=== PATIENT | female | born 1940 | race Caucasian/White ===

== ENCOUNTER 2017-02-02 13:22 | Inpatient (IN) | payer MEDICARE ==
[~2017-02-02] VITALS: Ht 157.5 cm; Wt 95.0 kg
[2017-02-02] VITALS (8 sets, daily range): BP systolic 128–171; BP diastolic 77–112
[2017-02-02] MEDS ORDERED: Zofran4 MG PO (17:16)
[2017-02-02] MEDS ORDERED: NORCO 5-325 TA1 EACH PO (17:16)
[2017-02-02 19:52] LABS: BASO # 0.1 10*3/uL (0.0-0.1); BASO % 0.2 % (0.0-1.0); HEMATOCRIT 41.3 % (37.0-47.0); HEMOGLOBIN 14.1 g/dl (12.0-16.0); IG # 0.1 10*3/uL (0.0-0.1); LYMPH # 2.2 10*3/uL (1.3-4.4); LYMPH % 9.5 % (27.0-41.0); MEAN CELL VOLUME 96.9 fl (81.0-99.0); MEAN CORPUSCULAR HGB 33.1 pg (27.0-31.0); MEAN CORPUSCULAR HGB CONC 34.1 g/dl (33.0-37.0); MEAN PLATELET VOLUME 10.3 fl (9.6-12.3); MONO # 0.8 10*3/uL (0.1-1.0); MONO % 3.7 % (3.0-9.0); NEUT # 19.8 10*3/uL (2.3-7.9); NEUT % 86.1 % (47.0-73.0); PLATELET COUNT AUTOMATED 356 10*3/uL (130-400); RED BLOOD COUNT 4.26 10*6/uL (4.10-5.10); RED CELL DISTRI WIDTH 13.2 % (0-14.5)
[2017-02-02 20:04] LABS: BUN 18 mg/dl (7-24); CARBON DIOXIDE 25 mmol/L (21-32); CHLORIDE 102 mmol/L (98-107); EST GLOM FILT AFRICAN AMERICAN > 60 ml/min; GLUCOSE 153 mg/dL (65-99); POTASSIUM 5.7 mmol/L (3.5-5.1); SODIUM 139 mmol/L (136-145)
[2017-02-02] MEDS ORDERED: DILTIAZEM 24HR300 MG PO (22:17)
[2017-02-02] MEDS ORDERED: XARE20MG PO (22:17)
[2017-02-02] MEDS ORDERED: NEURONTIN300 MG PO ×2 (22:18→22:20)
[2017-02-02] MEDS ORDERED: TOPROL XL25 MG PO (22:21)
[2017-02-02] MEDS ORDERED: FEMARA2.5 MG PO (22:21)
[2017-02-02] MEDS ORDERED: ADVAIR 500/501 E1 INH (22:22)
[2017-02-02] MEDS ORDERED: PROAIR HFA8.5 GM INH (22:22)
[2017-02-03] VITALS: BP 159/83
[2017-02-03 06:08] LABS: HEMATOCRIT 39.4 % (37.0-47.0); HEMOGLOBIN 12.9 g/dl (12.0-16.0); MEAN CELL VOLUME 97.8 fl (81.0-99.0); MEAN CORPUSCULAR HGB CONC 32.7 g/dl (33.0-37.0); MEAN PLATELET VOLUME 10.9 fl (9.6-12.3); PLATELET COUNT AUTOMATED 302 10*3/uL (130-400); RED BLOOD COUNT 4.03 10*6/uL (4.10-5.10); RED CELL DISTRI WIDTH 13.3 % (0-14.5); WHITE BLOOD COUNT 19.2 10*3/uL (4.8-10.8)
[2017-02-03 06:33] LABS: BUN 20 mg/dl (7-24); CARBON DIOXIDE 29 mmol/L (21-32); CHLORIDE 103 mmol/L (98-107); EST GLOM FILT AFRICAN AMERICAN > 60 ml/min; GLUCOSE 121 mg/dL (65-99); SODIUM 141 mmol/L (136-145)
[2017-02-03 06:39] LABS: POTASSIUM 4.4 mmol/L (3.5-5.1)
[2017-02-03 07:13] LABS: EOSINOPHIL # 0.4 10*3/uL (0-0.4); EOSINOPHILS 2 % (1-4); LYMPHOCYTE # 4.6 10*3/uL (1.3-4.4); MONOCYTE # 1.9 10*3/uL (0.1-1.0); NEUTROPHIL # 12.3 10*3/uL (2.3-7.9); NEUTROPHILS 64 % (47-73); TOTAL CELLS COUNTED 100 #CELLS
[2017-02-03 07:14] LABS: PLATELET SUFFICIENCY NORMAL (NORMAL)
[2017-02-03 08:00] VITALS: BP 159/98
[2017-02-03 12:00] VITALS: BP 157/92
[2017-02-03 16:00] VITALS: BP 150/105
[2017-02-03 17:50] VITALS: BP 142/88
[2017-02-03 20:00] VITALS: BP 164/87
[2017-02-04] VITALS: BP 174/83
[2017-02-04 08:00] VITALS: BP 147/76
[2017-02-04 08:08] LABS: MAGNESIUM 1.9 mg/dL (1.5-2.1)
[2017-02-04 08:10] LABS: HEMATOCRIT 38.3 % (37.0-47.0); HEMOGLOBIN 12.4 g/dl (12.0-16.0); MEAN CORPUSCULAR HGB 33.1 pg (27.0-31.0); MEAN CORPUSCULAR HGB CONC 32.4 g/dl (33.0-37.0); NUCLEATED RED BLOOD CELL 0.1 % (0.0-0.0); PLATELET COUNT AUTOMATED 285 10*3/uL (130-400); RED BLOOD COUNT 3.75 10*6/uL (4.10-5.10); RED CELL DISTRI WIDTH 13.6 % (0-14.5); WHITE BLOOD COUNT 19.6 10*3/uL (4.8-10.8)
[2017-02-04 08:12] LABS: MEAN CELL VOLUME 102.1 fl (81.0-99.0)
[2017-02-04 08:15] LABS: EOSINOPHIL # 0.2 10*3/uL (0-0.4); EOSINOPHILS 1 % (1-4); LYMPHOCYTE # 5.7 10*3/uL (1.3-4.4); MONOCYTE # 0.6 10*3/uL (0.1-1.0); NEUTROPHIL # 13.1 10*3/uL (2.3-7.9); NEUTROPHILS 67 % (47-73); TOTAL CELLS COUNTED 100 #CELLS
[2017-02-04 08:16] LABS: ACANTHOCYTES FEW; PLATELET SUFFICIENCY NORMAL (NORMAL); SCHISTOCYTES FEW
[2017-02-04 08:21] LABS: PHOSPHOROUS 3.8 mg/dL (2.5-4.9); THYROID STIM HORMONE (HS) 2.99 uIU/ml (0.358-4.75)
[2017-02-04 08:27] LABS: VITAMIN D, 25-HYDROXY 30.8 ng/mL (30-100)
[2017-02-04 12:00] VITALS: BP 157/72
[2017-02-04 16:00] VITALS: BP 139/67
[2017-02-04 20:00] VITALS: BP 109/60; BP 116/62
[2017-02-05] VITALS: BP 120/64
[2017-02-05 04:00] VITALS: BP 96/57
[2017-02-05 06:52] LABS: HEMATOCRIT 32.4 % (37.0-47.0); HEMOGLOBIN 10.8 g/dl (12.0-16.0); MEAN CELL VOLUME 100.3 fl (81.0-99.0); MEAN CORPUSCULAR HGB 33.4 pg (27.0-31.0); MEAN CORPUSCULAR HGB CONC 33.3 g/dl (33.0-37.0); MEAN PLATELET VOLUME 10.9 fl (9.6-12.3); PLATELET COUNT AUTOMATED 256 10*3/uL (130-400); RED BLOOD COUNT 3.23 10*6/uL (4.10-5.10); RED CELL DISTRI WIDTH 13.3 % (0-14.5); WHITE BLOOD COUNT 16.5 10*3/uL (4.8-10.8)
[2017-02-05 07:17] LABS: ACANTHOCYTES FEW; BASOPHIL # 0.3 10*3/uL (0-0.1); BASOPHILS 2 % (0-1); HYPOCHROMIA SLIGHT; LYMPHOCYTE # 4.5 10*3/uL (1.3-4.4); MONOCYTE # 1.3 10*3/uL (0.1-1.0); NEUTROPHIL # 10.4 10*3/uL (2.3-7.9); NEUTROPHILS 63 % (47-73); PLATELET SUFFICIENCY NORMAL (NORMAL); TOTAL CELLS COUNTED 100 #CELLS
[2017-02-05 07:20] LABS: ALBUMIN 2.7 gm/dl (3.1-4.5); ALKALINE PHOSPHATASE 139 U/L (45-117); BILIRUBIN, TOTAL 0.3 mg/dl (0.2-1.0); BUN 19 mg/dl (7-24); CARBON DIOXIDE 27 mmol/L (21-32); CHLORIDE 102 mmol/L (98-107); EST GLOM FILT AFRICAN AMERICAN > 60 ml/min; GLUCOSE 127 mg/dL (65-99); POTASSIUM 4.3 mmol/L (3.5-5.1); SGOT/AST 32 IU/L (3-35); SGPT/ALT 23 U/L (12-78); SODIUM 136 mmol/L (136-145); TOTAL PROTEIN 6.8 gm/dL (6.4-8.2)
[2017-02-05 08:00] VITALS: BP 133/50
[2017-02-05 12:00] VITALS: BP 112/50
[2017-02-05] MEDS ORDERED: CARDIZEM CD180 MG PO (14:58)
[2017-02-05 16:00] VITALS: BP 147/76
== END 2017-02-05 18:07 | disposition other institution (70) | DRG 562 ==
LOC: ED 13:22 → 5E 19:33
PROVIDERS: Emergency Medicine Emergency Medical Services; Internal Medicine
DX: S42.211A Unspecified displaced fracture of surgical neck of right humerus, initial encounter for closed fracture (principal); E43 Unspecified severe protein-calorie malnutrition; D69.3 Immune thrombocytopenic purpura; D68.69 Other thrombophilia; I48.91 Unspecified atrial fibrillation; S09.90XA Unspecified injury of head, initial encounter; S05.12XA Contusion of eyeball and orbital tissues, left eye, initial encounter; F41.9 Anxiety disorder, unspecified; J45.909 Unspecified asthma, uncomplicated; M19.90 Unspecified osteoarthritis, unspecified site; W18.30XA Fall on same level, unspecified, initial encounter; I10 Essential (primary) hypertension; E66.9 Obesity, unspecified; Z68.38 Body mass index [BMI] 38.0-38.9, adult; Y93.89 Activity, other specified; Y92.89 Other specified places as the place of occurrence of the external cause; Y99.8 Other external cause status; Z85.3 Personal history of malignant neoplasm of breast; Z90.13 Acquired absence of bilateral breasts and nipples; Z90.81 Acquired absence of spleen; Z83.3 Family history of diabetes mellitus; Z82.49 Family history of ischemic heart disease and other diseases of the circulatory system; Z80.3 Family history of malignant neoplasm of breast; Z79.01 Long term (current) use of anticoagulants; Z79.899 Other long term (current) drug therapy